=== PATIENT | female | born 1990 | race Caucasian/White ===

== ENCOUNTER 2016-11-12 21:23 | Emergency (ER) | payer OTHER ==
[~2016-11-12] VITALS: Ht 160 cm; Wt 78.7 kg
[2016-11-12 22:31] LABS: ADD MIUA? YES; BILIRUBIN NEGATIVE; BLOOD NEGATIVE; COLOR YELLOW ((YELLOW)); GLUCOSE (STRIP) NEGATIVE; KETONES 5; LEUKOCYTES NEGATIVE; NITRITE NEGATIVE; PROTEIN (STRIP) 30; SPECIFIC GRAVITY 1.021 (1.000-1.030); UROBILINOGEN 0.2 MG/DL (0.2-1.0)
[2016-11-12 22:35] LABS: BACTERIA RARE /HPF; EPITHELIAL CELLS 3+ /HPF; MUCUS 3+ /LPF; RED BLOOD CELLS 0-5 /HPF (0-5); WHITE BLOOD CELLS 0-5 /HPF (0-5)
[2016-11-12 22:55] LABS: CHLORIDE 106 mEq/L (99-109); POTASSIUM 3.7 mEq/L (3.7-5.4); SODIUM 138 mEq/L (136-147)
[2016-11-12 22:58] LABS: GLUCOSE 121 mg/dL (70-99)
[2016-11-12 22:59] LABS: ANION GAP 10 MEQ/L (2-14); TOTAL BILIRUBIN 0.5 mg/dL (0.0-1.0)
[2016-11-12 23:01] LABS: ALKALINE PHOSPHATASE 87 IU/L (3-129); GFR ESTIMATE (CALCULATED) > 59 mL/min/
[2016-11-12 23:02] LABS: UREA NITROGEN (BUN) 7 mg/dL (9-23)
[2016-11-12 23:03] LABS: DIRECT BILIRUBIN 0.1 mg/dL (0.0-0.3)
[2016-11-12 23:05] LABS: LIPASE 9 U/L (1.0-51.0)
[2016-11-12 23:11] LABS: QUANTITATIVE HCG < 4.0 MIU/ML
[2016-11-12 23:37] LABS: BASOPHIL COUNT 0.1 K/uL (0-0.1); EOSINOPHIL (%) 3.1 % (0-5); EOSINOPHIL COUNT 0.3 K/uL (0-0.3); HEMATOCRIT 34.9 % (36.0-46.0); IMMATURE GRANULOCYTE (%) 0.4 % (0.0-0.7); INSTRUMENT ABS NEUTROPHIL CT 5.5 K/uL; LYMPHOCYTE COUNT 3.8 K/uL (1.0-2.8); MCH 29.6 PG (29.0-34.0); MCHC 34.4 G/DL (30.0-36.0); MCV 86.2 FL (83-99); MEAN PLAT.VOLUME 9.6 uM^3 (9.5-12.4); MONOCYTE (%) 7.5 % (3-12); MONOCYTE COUNT 0.8 K/uL (0-0.8); NEUTROPHIL (%) 52.2 % (45-76); NEUTROPHIL COUNT 5.5 K/uL (1.8-6.4); PLATELET COUNT 322 K/uL (156-360); RBC DIS.WIDTH-CV 11.9 % (11.8-14.6); RBC DIS.WIDTH-SD 37.3 % (39-53); RED BLOOD COUNT 4.05 M/uL (3.80-5.20); WHITE BLOOD COUNT 10.5 K/uL (4.1-10.2)
[2016-11-13] MEDS ORDERED: MOTRIN800 MG PO (03:42)
[2016-11-13] MEDS ORDERED: ZOFRAN ODT4 MG PO (03:42)
[2016-11-13] MEDS ORDERED: NORCO 7.5/321 TABLET PO (03:42)
[2016-11-13 04:00] VITALS: BP 105/72
== END 2016-11-13 04:02 | disposition home or self-care (01) ==
LOC: EME 21:23
PROVIDERS: Physician Assistant
DX: R10.11 Right upper quadrant pain (principal); N83.201 Unspecified ovarian cyst, right side; R11.0 Nausea; R19.7 Diarrhea, unspecified; Z87.891 Personal history of nicotine dependence
CPT/HCPCS: 74176; 76705; 76856; 80048; 80076; 81003; 83690; 84702; 85025; 99281; 99285; J0500; J1885; J3010; J7030

== ENCOUNTER 2016-11-18 17:34 | Emergency (ER) | payer OTHER ==
[~2016-11-18] VITALS: Ht 160 cm; Wt 79.4 kg
[~2016-11-18 17:34] MED LIST: MOTRIN800 MG PO; NORCO 7.5/321 TABLET PO; ZOFRAN ODT4 MG PO
[2016-11-18 18:32] LABS: ADD MIUA? YES; BILIRUBIN NEGATIVE; BLOOD NEGATIVE; COLOR YELLOW ((YELLOW)); GLUCOSE (STRIP) NEGATIVE; KETONES 5; LEUKOCYTES NEGATIVE; NITRITE NEGATIVE; PROTEIN (STRIP) NEGATIVE; SPECIFIC GRAVITY 1.016 (1.000-1.030); UROBILINOGEN 0.2 MG/DL (0.2-1.0)
[2016-11-18 18:34] LABS: HEMATOCRIT 38.1 % (36.0-46.0); MCH 30.3 PG (29.0-34.0); MCHC 35.4 G/DL (30.0-36.0); MCV 85.6 FL (83-99); MEAN PLAT.VOLUME 9.5 uM^3 (9.5-12.4); PLATELET COUNT 354 K/uL (156-360); RBC DIS.WIDTH-CV 11.9 % (11.8-14.6); RBC DIS.WIDTH-SD 37.1 % (39-53); RED BLOOD COUNT 4.45 M/uL (3.80-5.20); WHITE BLOOD COUNT 11.2 K/uL (4.1-10.2)
[2016-11-18 18:47] LABS: CHLORIDE 108 mEq/L (99-109); POTASSIUM 3.9 mEq/L (3.7-5.4); SODIUM 139 mEq/L (136-147)
[2016-11-18 18:47] LABS: BACTERIA RARE /HPF; EPITHELIAL CELLS 1+ /HPF; MUCUS TRACE /LPF; RED BLOOD CELLS 0-5 /HPF (0-5); UCUL ADDED? NO; UNCLASSIFIED CRYSTALS 1+ /HPF; WHITE BLOOD CELLS 0-5 /HPF (0-5)
[2016-11-18 18:49] LABS: GLUCOSE 143 mg/dL (70-99)
[2016-11-18 18:51] LABS: ANION GAP 9 MEQ/L (2-14)
[2016-11-18 18:53] LABS: ALKALINE PHOSPHATASE 83 IU/L (3-129); GFR ESTIMATE (CALCULATED) > 59 mL/min/
[2016-11-18 18:54] LABS: UREA NITROGEN (BUN) 8 mg/dL (9-23)
[2016-11-18 18:55] LABS: TOTAL BILIRUBIN 0.3 mg/dL (0.0-1.0)
[2016-11-18 19:04] LABS: QUANTITATIVE HCG < 4.0 MIU/ML
[2016-11-18 19:34] LABS: AMPHETAMINE NEGATIVE (500 ng/mL); BARBITURATES NEGATIVE (200 ng/mL); BENZODIAZEPINES NEGATIVE (150 ng/mL); COCAINE NEGATIVE (150 ng/mL); INTERNAL CONTROLS VALID? YES; METHADONE NEGATIVE (200 ng/mL); METHAMPHETAMINE NEGATIVE (500 ng/mL); OPIATES (MORPHINE) PRESUMPTIVE POSITIVE (100 ng/mL); OXYCODONE NEGATIVE (100 ng/mL); PHENCYCLIDINE NEGATIVE (25 ng/mL); PROPOXYPHENE NEGATIVE (300 ng/mL); THC CANNABINOIDS NEGATIVE (50 ng/mL); TRICYCLIC ANTIDEPRESSANTS PRESUMPTIVE POSITIVE (300 ng/mL)
[2016-11-18 19:41] LABS: ADD MEDTOX COMMENT Y
[2016-11-18] MEDS ORDERED: ZOFRAN ODT4 MG PO (21:02)
[2016-11-18] MEDS ORDERED: MOTRIN800 MG PO (21:02)
[2016-11-18 21:24] VITALS: BP 115/79
== END 2016-11-18 21:25 | disposition home or self-care (01) ==
LOC: EME 17:34
PROVIDERS: Nurse Practitioner Family
DX: N83.209 Unspecified ovarian cyst, unspecified side (principal); R11.0 Nausea; R10.2 Pelvic and perineal pain; E11.9 Type 2 diabetes mellitus without complications; Z87.891 Personal history of nicotine dependence
CPT/HCPCS: 76856; 80053; 81003; 84702; 84999; 85027; 99281; 99284; J1885